=== PATIENT | male | born 1995 | race Caucasian/White ===

== ENCOUNTER 2018-10-17 12:25 | Emergency (ER) | payer BC ==
[2018-10-17] MEDS ORDERED: NS 1,000 ML IV ONE (13:19)
[2018-10-17] MEDS ORDERED: KETOROLAC 30 MG/1 ML SDV IVP ONE (13:19)
--- NOTE | 2018-10-17 13:22 | EDPHY ---
H & P Stated Complaint: 3 days r testicular pain followed by r flank pain Time Seen by Provider: 10/17/18 13:05 HPI/ROS: CHIEF COMPLAINT: Right testicular and flank pain HISTORY OF PRESENT ILLNESS: 23-year-old male presents with right testicular flank pain. Onset of right testicular pain 3 days ago. The pain has been moderate and persistent. Yesterday, onset of right flank pain, waxing and waning. Continues to have moderate to severe flank pain. No associated dysuria or blood in urine. No abdominal pain, vomiting or fever. REVIEW OF SYSTEMS: complete 10 point ROS reviewed and is negative except for the noted elements in the HPI - Personal History Current Tetanus Diphtheria and Acellular Pertussis (TDAP): Yes - Medical/Surgical History Hx Asthma: No Hx Chronic Respiratory Disease: No Hx Diabetes: No Hx Cardiac Disease: No Hx Renal Disease: No Hx Cirrhosis: No Hx Alcoholism: No Hx HIV/AIDS: No Hx Splenectomy or Spleen Trauma: No Other PMH: undescended testicle at - Social History Smoking Status: Never smoked - Physical Exam Exam: General Appearance: Alert, pleasant Eyes: Pupils equal and round, no conjunctival pallor or injection ENT, Mouth: Mucous membranes moist Neck: Normal inspection Respiratory: Lungs are clear to auscultation Cardiovascular: Regular rate and rhythm Gastrointestinal: Abdomen is soft and nontender Back: Right CVA tenderness Genitourinary: Normal inspection, high riding right testicle, no tenderness or swelling, tender inguinal adenopathy present Neurological: A&O, nonfocal, normal gait Skin: Warm and dry Extremities: Normal inspection Psychiatric: Mood and affect normal Constitutional: Initial Vital Signs Temperature (C) 37.1 C 10/17/18 12:42 Heart Rate 61 10/17/18 12:42 Respiratory Rate 17 10/17/18 12:42 Blood Pressure 110/63 10/17/18 12:42 O2 Sat (%) 97 10/17/18 12:42 O2 Delivery Mode Room Air Allergies/Adverse Reactions: No Known Allergies Allergy (Unverified 10/17/18 12:42) Home Medications: Medication Instructions Recorded Tamsulosin HCl [Flomax 0.4 MG (RX)] 0.4 mg PO DAILY #5 cap 10/17/18 oxyCODONE/APAP 5/325 [Percocet 1 tab PO Q4 PRN #15 tab 10/17/18 5/325 (*)] Medical Decision Making - Diagnostics Imaging Results: Imaging Impressions Abdomen/Pelvis CT 10/17/18 13:19 IMPRESSION: 1. 0.8 cm right UPJ stone with minimal hydronephrosis. No distal ureteral or bladder calculi. Dr. Cuevas was notified of these findings by telephone at 2:30 PM on 10/17/2018 Testicular Ultrasound 10/17/18 13:19 Impression: Normal ultrasound testes. Findings and recommendations discussed with Emergency Department physician, EFFIE CUEVAS at 14:13 hour, 10/17/2018. Final report concurs with initial preliminary interpretation. Imaging: Discussed imaging studies w/ senior oracle database developer Radiologist ED Course/Re-evaluation: This patient presents with right testicular pain, followed by right flank pain. Symptoms most suggestive of renal colic. Testicular ultrasound and performed and is unremarkable. CT scan of the abdomen pelvis reveals a 8 mm right UPJ stone. Results discussed with the patient. He feels much better after Toradol IV and is comfortable. Would like to go home. Warning signs discussed. He will call Urology to make a follow-up appointment. Differential Diagnosis: Differential diagnosis includes though it is not limited to appendicitis, cholecystitis, diverticulitis, pyelonephritis, bowel perforation, small bowel obstruction. - Data Points Laboratory Results: Laboratory Results 10/17/18 13:40 10/17/18 13:40 10/17/18 10/17/18 10/17/18 14:47 14:47 13:40 WBC RBC Hgb Hct MCV MCH MCHC RDW Plt Count MPV Neut % (Auto) Lymph % (Auto) [place] % (Auto) Eos % (Auto) Baso % (Auto) Nucleat RBC Rel Count Absolute Neuts (auto) Absolute Lymphs (auto) Absolute Monos (auto) Absolute Eos (auto) Absolute Basos (auto) Absolute Nucleated RBC Immature Gran % Immature Gran # Sodium 137 mEq/L mEq/L (135-145) Potassium 4.8 mEq/L mEq/L (3.5-5.2) Chloride 108 mEq/L mEq/L (97-110) Carbon Dioxide 24 mEq/l mEq/l (22-31) Anion Gap 5 mEq/L L mEq/L (6-14) BUN 14 mg/dL mg/dL (7-23) Creatinine 0.9 mg/dL mg/dL (0.7-1.3) Estimated GFR > 60 Glucose 86 mg/dL mg/dL (70-100) Calcium 9.4 mg/dL mg/dL (8.5-10.4) Urine Color Pending Urine Appearance Pending Urine pH Pending Ur Specific [place] Pending Urine Protein Pending Urine Ketones Pending Urine Blood Pending Urine Nitrate Pending Urine Bilirubin Pending Urine Urobilinogen Pending Ur Leukocyte Esterase Pending Urine Glucose Pending C.trachomatis RNA (TMA) Pending N.gonorrhoeae RNA (TMA) Pending 10/17/18 13:40 WBC 4.31 10^3/uL 10^3/uL (3.80-9.50) RBC 5.33 10^6/uL 10^6/uL (4.40-6.38) Hgb 14.9 g/dL g/dL (13.7-17.5) Hct 44.9 % % (40.0-51.0) MCV 84.2 fL fL (81.5-99.8) MCH 28.0 pg pg (27.9-34.1) MCHC 33.2 g/dL g/dL (32.4-36.7) RDW 12.3 % % (11.5-15.2) Plt Count 179 10^3/uL 10^3/uL (150-400) MPV 11.2 fL fL (8.7-11.7) Neut % (Auto) 51.1 % % (39.3-74.2) Lymph % (Auto) 32.5 % % (15.0-45.0) [place] % (Auto) 10.4 % % (4.5-13.0) Eos % (Auto) 4.9 % % (0.6-7.6) Baso % (Auto) 0.9 % % (0.3-1.7) Nucleat RBC Rel Count 0.0 % % (0.0-0.2) Absolute Neuts (auto) 2.20 10^3/uL 10^3/uL (1.70-6.50) Absolute Lymphs (auto) 1.40 10^3/uL 10^3/uL (1.00-3.00) Absolute Monos (auto) 0.45 10^3/uL 10^3/uL (0.30-0.80) Absolute Eos (auto) 0.21 10^3/uL 10^3/uL (0.03-0.40) Absolute Basos (auto) 0.04 10^3/uL 10^3/uL (0.02-0.10) Absolute Nucleated RBC 0.00 10^3/uL 10^3/uL (0-0.01) Immature Gran % 0.2 % % (0.0-1.1) Immature Gran # 0.01 10^3/uL 10^3/uL (0.00-0.10) Sodium Potassium Chloride Carbon Dioxide Anion Gap BUN Creatinine Estimated GFR Glucose Calcium Urine Color Urine Appearance Urine pH Ur Specific [place] Urine Protein Urine Ketones Urine Blood Urine Nitrate Urine Bilirubin Urine Urobilinogen Ur Leukocyte Esterase Urine Glucose C.trachomatis RNA (TMA) N.gonorrhoeae RNA (TMA) Medications Given: Discontinued Medications Sodium Chloride (Ns) 1,000 mls @ 0 mls/hr IV EDNOW ONE; Wide Open PRN Reason: Protocol Stop: 10/17/18 13:20 Last Admin: 10/17/18 13:42 Dose: 1,000 mls Ketorolac Tromethamine (Toradol) 30 mg IVP EDNOW ONE Stop: 10/17/18 13:20 Last Admin: 10/17/18 13:43 Dose: 30 mg Departure - Departure Disposition: Home, Routine, Self-Care Clinical Impression: Renal colic on right side Condition: Good Instructions: Renal Colic (ED) Additional Instructions: 1. Take Ibuprofen or Motrin 600 mg by mouth three times a day. 2. Percocet as needed for severe pain 3. Flomax as directed 4. Zofran as needed for nausea 5. Strain urine as directed 6. Return to the Emergency Department for intractable pain, fever or vomiting. 7. Followup with the urologist. Referrals: Gaby Ybarra MD [Medical Doctor] - As per Instructions (Call to make an appointment. ) Prescriptions: oxyCODONE/APAP 5/325 [Percocet 5/325 (*)] 1 tab PO Q4 PRN #15 tab PRN Reason: pain Tamsulosin HCl [Flomax 0.4 MG (RX)] 0.4 mg PO DAILY #5 cap
[2018-10-17 13:54] LABS: PLATELET COUNT 179 10^3/uL (150-400)
[2018-10-17 15:12] VITALS: BP 121/74
[2018-10-20 12:26] LABS: GC AMPLIFICATION GENPROBE NEGATIVE (NEGATIVE)
== END 2018-10-17 15:11 | disposition home or self-care (01) ==
DX: N13.0 Hydronephrosis with ureteropelvic junction obstruction (principal); N23 Unspecified renal colic; E86.9 Volume depletion, unspecified
CPT/HCPCS: 96374; J1885

== ENCOUNTER → 2018-10-23 | Outpatient (CLI) | payer BC | LOC: FIMAGING 13:06 | PROVIDERS: ATTEND Specialist | DX: N20.0 Calculus of kidney (principal) ==